=== PATIENT | male | born 1980 | race Caucasian/White ===

== ENCOUNTER 2025-05-23 19:26 | Emergency (ER) | payer OTHER, SELFPAY ==
[2025-05-23] VITALS (22 sets, daily range): BP systolic 104–148; BP diastolic 76–95; PULSE 62–84; RESP 12–32; TEMP 36.5; O2SAT 93–98; BMI 25.4
--- NOTE | 2025-05-23 19:58 | CRLHL7_ITS ---
For Patients: As a result of the Century Cures Act, medical imaging exams and procedure reports are released immediately into your electronic medical record. You may view this report before your referring provider. If you have questions, please contact your health care provider. INDICATION: Acute stroke. Dizziness. TECHNIQUE: CTA head using intravenous contrast with bolus tracking, 3D angiographic rendering using maximum intensity projection (MIP) and images permanently archived. CTA neck using intravenous contrast with bolus tracking, 3D angiographic rendering using maximum intensity projection (MIP) and images permanently archived. FINDINGS: CTA head: There is normal opacification of the intracranial vasculature. There is no large vessel occlusion or significant intracranial stenosis. No aneurysm is identified. CTA neck: There is no significant carotid artery stenosis or dissection. There is no significant vertebral artery stenosis or dissection. IMPRESSION: Unremarkable head CTA. Unremarkable neck CTA. Please note that all CT scans at this facility use dose modulation, iterative reconstruction, and/or weight-based dosing when appropriate to reduce radiation dose to as low as reasonably achievable. Dictated by Isiah Gaines MD @ 05/24/2025 7:17:28 PM (Electronically Signed)
--- NOTE | 2025-05-23 19:58 | CRLHL7_ITS ---
For Patients: As a result of the Century Cures Act, medical imaging exams and procedure reports are released immediately into your electronic medical record. You may view this report before your referring provider. If you have questions, please contact your health care provider. Indication: Dizziness, visual disturbances Technique: Noncontrast CT through the head with multiplanar reformats Comparison: None Findings: Brain: No acute hemorrhage. No acute infarct. No significant mass effect or midline shift. No gross evidence of a mass lesion or cerebral edema. Ventricles: No acute abnormality appreciated. Orbits, sinuses, mastoids: No acute abnormality appreciated. Mild sinus disease. Calvarium and soft tissues: No acute abnormality appreciated. Impression: No acute abnormality appreciated. MRI would be recommended if there is continued clinical concern for significant intracranial pathology. Please note that all CT scans at this facility use dose modulation, iterative reconstruction, and/or weight-based dosing when appropriate to reduce radiation dose to as low as reasonably achievable. Dictated by Joel Aguilar MD @ 05/23/2025 8:20:26 PM (Electronically Signed)
--- NOTE | 2025-05-23 20:10 | ED_ITS ---
HPI - Neuro Symptoms/Deficit General Time Seen by Provider: 20:02 Date Seen: 05/23/25 Chief Complaint: Neuro Symptoms/Altered Deficit Stated Complaint: fuzzy vision, seeing stars Time Seen by Provider: 05/23/25 20:07 Source: patient Mode of arrival: ambulatory Limitations: no limitations History of Present Illness HPI Narrative: Martina is a previously healthy 44 yo male who presents to the emergency department for evaluation vision changes. 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 Patient states that around 1900 he was [place] from [employer] caring 2 5 gal buckets of glycol (weighing approximately 100 lb) patient states that he coughed, suddenly felt dizzy as if he was going to pass out so he sat down. Patient reports that afterwards he had blurry vision with vision flashing in both eyes. Patient reports right eye seems improved however still has ongoing flashing to his left eye. Patient reports some chest tightness and shortness of breath. Denies any headache, eye pain, focal weakness. Patient reports some tingling and numbness. No history of similar symptoms in the past. No other complaints. Related Data Home Medications ?Medication ?Instructions ?Recorded ?Confirmed No Known Home Medications 05/23/25 1208/16 Allergies Allergy/AdvReac Type Severity Reaction Status Date / Time clindamycin Allergy Mild Rash Verified 05/23/25 20:18 Penicillins Allergy Mild Rash Verified 05/23/25 20:18 Review of Systems Narrative: Past medical history, past surgical history, medications, allergies, family history, and social history were reviewed with the patient. No additional pertinent items. A medically appropriate review of systems was performed with pertinent positives and negatives noted in HPI, all other systems negative. Exam Narrative: Exam Narrative: General: Afebrile, no acute distress HEENT: Normocephalic, atraumatic, PERRL, EOMI, conjunctiva normal. MMM Neck: non-tender, supple Cardio: regular rate. regular rhythm Resp: Normal work of breathing, no respiratory distress, lungs clear [place] aterally, no wheezing, rhonchi, rales Chest/Back: no visual signs of trauma, no midline tenderness, no CVA tenderness Abdomen: soft, non distension, no tenderness, no peritoneal signs Neuro: alert and fully oriented. CN II-XII intact. Visual shore intact - reports intermittent flashes in left upper eye/visual field (right sided visual changes/flashes resolved). Patient reports symptoms are present when eyes are open and closed. Normal strength and sensation in all extremities. Normal gait. MSK: no deformities. Normal range of motion Integumentary/Skin: no rash visualized, normal color Psych: normal affect, normal behavior Const: Vital Signs, click to edit/add: Vital Signs - 24 hr 05/23/25 19:36 05/23/25 20:17 05/23/25 20:30 Temperature 97.7 F Pulse Rate 74 75 Pulse Rate [Pulse Oximeter] 84 Respiratory Rate 18 16 19 Blood Pressure Blood Pressure [Ri ght Upper Arm] 148/95 H Pulse Oximetry 98 96 96 Oxygen Delivery Me thod Room Air 05/23/25 20:31 05/23/25 20:45 05/23/25 20:46 Temperature Pulse Rate 74 73 74 Pulse Rate [Pulse Oximeter] Respiratory Rate 13 18 18 Blood Pressure 125/84 111/78 Blood Pressure [Ri ght Upper Arm] Pulse Oximetry 93 94 95 Oxygen Delivery Me thod 05/23/25 21:00 05/23/25 21:01 05/23/25 21:15 Temperature Pulse Rate 68 66 74 Pulse Rate [Pulse Oximeter] Respiratory Rate 18 14 16 Blood Pressure 110/76 Blood Pressure [Ri ght Upper Arm] Pulse Oximetry 94 95 95 Oxygen Delivery Me thod 05/23/25 21:16 05/23/25 21:17 05/23/25 21:30 Temperature Pulse Rate 78 71 70 Pulse Rate [Pulse Oximeter] Respiratory Rate 20 13 13 Blood Pressure 112/78 Blood Pressure [Ri ght Upper Arm] Pulse Oximetry 97 97 96 Oxygen Delivery Me thod 05/23/25 21:31 05/23/25 21:45 05/23/25 21:46 Temperature Pulse Rate 68 70 64 Pulse Rate [Pulse Oximeter] Respiratory Rate 13 32 H 16 Blood Pressure 104/76 124/85 Blood Pressure [Ri ght Upper Arm] Pulse Oximetry 97 98 98 Oxygen Delivery Me thod 05/23/25 22:00 05/23/25 22:05 05/23/25 22:15 Temperature Pulse Rate 74 64 68 Pulse Rate [Pulse Oximeter] Respiratory Rate 15 17 19 Blood Pressure Blood Pressure [Ri ght Upper Arm] Pulse Oximetry 96 96 95 Oxygen Delivery Me thod 05/23/25 22:20 05/23/25 22:30 05/23/25 22:34 Temperature Pulse Rate 69 64 62 Pulse Rate [Pulse Oximeter] Respiratory Rate 16 12 Blood Pressure Blood Pressure [Ri ght Upper Arm] Pulse Oximetry 96 96 96 Oxygen Delivery Me thod 05/23/25 22:45 Temperature Pulse Rate 73 Pulse Rate [Pulse Oximeter] Respiratory Rate 13 Blood Pressure Blood Pressure [Ri ght Upper Arm] Pulse Oximetry 97 Oxygen Delivery Me thod Course Vital Signs Vital signs: Initial Vital Signs Temperature 97.7 F 05/23/25 19:36 Temperature Source Temporal Artery Scan 05/23/25 19:36 Pulse Rate 84 05/23/25 19:36 Pulse Rhythm Regular 05/23/25 19:36 Respiratory Rate 18 05/23/25 19:36 Blood Pressure 148/95 H 05/23/25 19:36 Blood Pressure Mean 112 H 05/23/25 19:36 Blood Pressure Position Sitting 05/23/25 19:36 Pulse Oximetry 98 05/23/25 19:36 Oxygen Delivery Method Room Air 05/23/25 19:36 Vital Signs Temperature 97.7 F 05/23/25 19:36 Pulse Rate 84 05/23/25 19:36 Respiratory Rate 18 05/23/25 19:36 Blood Pressure 148/95 H 05/23/25 19:36 Pulse Oximetry 98 05/23/25 19:36 Oxygen Delivery Method Room Air 05/23/25 19:36 Temperature 97.7 F 05/23/25 19:36 Pulse Rate 73 05/23/25 22:45 Respiratory Rate 13 05/23/25 22:45 Blood Pressure 124/85 05/23/25 21:46 Pulse Oximetry 97 05/23/25 22:45 Oxygen Delivery Method Room Air 05/23/25 19:36 Medications Administered Medications: Discontinued Medications Generic Name Dose Route Start Last Admin Trade Name Freq PRN Reason Stop Dose Admin Sodium Chloride 1,000 mls @ 1,000 mls/hr 05/23/25 21:30 05/23/25 22:39 0.9 % Sodium Chloride 1000 Ml IV 05/23/25 22:29 Infused .Q1H EFRAÍN Infusion Ketorolac Tromethamine 15 mg 05/23/25 21:25 05/23/25 21:35 Ketorolac 15 Mg/Ml Inj IVP 05/23/25 21:26 15 mg ONCE ONE Administration Metoclopramide HCl 10 mg 05/23/25 21:25 05/23/25 21:35 Metoclopramide Hcl 5 Mg/Ml Inj IVP 05/23/25 21:26 10 mg ONCE ONE Administration MDM - Neuro Symptoms/Deficit MDM Narrative Medical decision making narrative: Martina is a previously healthy 44 yo male who presents to the emergency department for evaluation of sudden onset near syncope and vision changes. Upon arrival code stroke was called. Last known well time is 7:00 p.m.. Patient slightly hypertensive upon arrival with blood pressure 148/95, heart rate 84, oxygen 98% on room air. Patient reports right-sided vision changes have resolved, still having left-sided flashes in left upper eye. No other focal neurological deficit. Patient went immediately to CT/CT of the head and neck for stroke like symptoms. Differential diagnosis includes but is not limited to CVA - ischemic versus hemorrhagic versus TIA versus migraine versus dissection versus aneurysm versus dehydration versus metabolic/electrolyte among others. I discussed patient management with Neurology team at [facility] - Dr. Gambino. Dr. Canseco reviewed imaging, at this time not a candidate for is lytics due to improving symptoms and no a focal deficits as well as possible mimic (migraine equivalent). Suspect likely occipital symptoms however do recommend further evaluation and MRI. I reviewed comprehensive labs which are remarkable for wbc 7.63, hemoglobin 14.1, no acute metabolic or electrolyte abnormality. I reviewed EKG which demonstrates normal sinus rhythm with normal axis, ventricular rate of 81 beats per minute, QTC 429, no acute ischemic change. No prior EKG to compare to. I personally reviewed interpreted CT of the head which demonstrates no acute abnormality, no acute infarct, intracranial hemorrhage. I personally reviewed a nd interpreted CTA of the head and neck and reviewed preliminary report which is unremarkable with no acute abnormality. I discussed results with Neurology team Dr. Canseco. I personally reviewed interpreted chest x-ray which is unremarkable with no focal infiltrate, pleural effusion, pneumothorax. On re-evaluation at 2115 patient reports complete resolution of symptoms with improvement/resolution of his visual changes however does report headache. Given patient's symptoms suspect likely migraine equivalent. Patient was treated with 1 L IV fluid bolus, Reglan, Toradol. I did discuss with patient and recommend admission for further evaluation, continues close monitoring, an MRI of the brain in the morning. Patient states that he needs to go back to work and does not want to stay in the hospital. Patient does understand risk and is agreeable to follow up in clinic for further evaluation, outpatient MRI, as well as outpatient ophthalmology evaluation. Patient given clinic numbers to call to schedule appointment. Strict return precautions discussed. Patient understands and agrees the plan. Medical Records Attestation: I reviewed the patient's medical records. Lab Data Attestation: I reviewed the patient's lab results. Labs: Lab Results 05/23/25 05/23/25 Range/Units 20:03 21:06 WBC 7.63 (4.50-11.00) K/uL RBC 4.71 (4.30-5.90) m/uL Hgb 14.1 (13.5-17.5) gm/dL Hct 41.0 (37.0-53.0) % MCV 87 (80-100) fL MCH 30 (26-34) pg MCHC 34 (32-36) gm/dL RDW Coeff of Bianca 11.9 (11.5-15.5) % Plt Count 277 (140-440) K/uL Neut % (Auto) 62.6 (42.0-72.0) % Lymph % (Auto) 24.0 (20-44) % [place] % (Auto) 8.0 (0.0-11.0) % Eos % (Auto) 4.8 (0.0-7.0) % Baso % (Auto) 0.5 (0.0-3.0) % Neut # (Auto) 4.77 (1.7-7.0) K/uL Lymph # (Auto) 1.83 (0.90-2.90) K/uL [place] # (Auto) 0.60 (0.00-0.90) K/UL Eos # (Auto) 0.37 (0.00-0.50) K/uL Baso # (Auto) 0.04 (0.00-0.30) K/uL Abs Immat Gran (auto) 0.01 (0.00-0.30) K/uL Imm/Tot Granulo (auto) 0.1 % VBG pH 7.394 (7.32-7.43) VBG pCO2 47 (40-50) mmHG VBG pO2 43.3 (25-47) mmHG VBG HCO3 29 H (21-28) mmol/L Carboxyhemoglobin 2.1 (0.0-5.0) % Sodium 137 (135-149) mmol/L Potassium 3.6 (3.6-5.1) mmol/L Chloride 98 (96-114) mmol/L Carbon Dioxide 25 (20-32) mmol/L Anion Gap 14 (7-15) mEq/L BUN 10 (5-24) mg/dL Creatinine 1.0 (0.5-1.5) mg/dL Estimated Creat Clear 104.54 Estimated GFR 96 ml/min Glucose 94 (60-115) mg/dL Calcium 9.1 (8.4-10.6) mg/dL Total Bilirubin 0.6 (0.1-1.5) mg/dL AST 25 (12-35) U/L ALT 19 (4-50) U/L Alkaline Phosphatase 120 (40-150) U/L Troponin I Cancelled Total Protein 6.7 (6.0-8.3) g/dL Albumin 4.2 (3.3-5.0) g/dL Imaging Data CT scan - head: Attestation: I have reviewed the pertinent imaging results. Radiologist's impression: [place] [address] Diagnostic Imaging Report Patient: Martina Kang MR#: [id number] : 1980 Acct:[id number] Loc: ED Service Date: 05/23/[address]: Ordering Physician: Betty Whalen M.D. Date of Service: 05/23/25 Procedure(s): CT head/brain [facility] Accession Number(s): [id number] cc: eBtty Whalen M.D.~ For Patients: As a result of the Century Cures Act, medical imaging exams and procedure reports are released immediately into your electronic medical record. You may view this report before your referring provider. If you have questions, please contact your health care provider. Indication: Dizziness, visual disturbances Technique: Noncontrast CT through the head with multiplanar reformats Comparison: None Findings: Brain: No acute hemorrhage. No acute infarct. No significant mass effect or midline shift. No gross evidence of a mass lesion or cerebral edema. Ventricles: No acute abnormality appreciated. Orbits, sinuses, mastoids: No acute abnormality appreciated. Mild sinus disease. Calvarium and soft tissues: No acute abnormality appreciated. Impression: No acute abnormality appreciated. MRI would be recommended if there is continued clinical concern for significant intracranial pathology. Please note that all CT scans at this facility use dose modulation, iterative reconstruction, and/or weight-based dosing when appropriate to reduce radiation dose to as low as reasonably achievable. Dictated by Joel Aguilar MD @ 05/23/2025 8:20:26 PM Critical Care Time Critical Care Time Critical Care Time: Yes Attestation: The patient required my highest level preparedness to intervene emergently and I personally spent this critical care time directly and personally managing the patient. This critical care time included: Obtaining a history; Examining the patient; Pulse oximetry; Ordering and reviewing of studies; Arranging urgent treatment with development of a management plan; Evaluation of patients response to treatment; Frequent reassessment discussions with other providers. This critical care time was performed to assess and manage the high probability of imminent life-threatening deterioration that could result in multiorgan failure. It was exclusive of separate billable procedures and treating other patients and teaching time. Total Critical Care Time in Minutes: 45 Discharge Plan Discharge Clinical Impression: Blurry vision, Vision changes Patient Disposition: Home, Self-Care Condition: Stable Additional Instructions: We recommend staying in the hospital for ongoing evaluation, MRI of your brain. Please follow up with your primary care provider in clinic for further evaluation and follow up and to arrange outpatient testing. Please call [phone] to schedule a clinic appointment/follow up. We also recommend further ophthalmology evaluation with complete eye examination. Please call [phone] to schedule an appointment at [facility]. Please continue your own medications. Please return to the emergency department if any recurrent or worsening symptoms. It was a pleasure taking care of you today. We hope you feel better soon. Prescriptions: No Action No Known Home Medications Follow Up/Referrals: Provider,Not a Local [Primary Care Provider, Family Practice] Stand Alone Forms: [employer] Info Instructions Procedures ABG Interpretation ABG Results: 05/23/25 21:06 VBG pH 7.394 VBG pCO2 47 VBG pO2 43.3 VBG HCO3 29 H
--- NOTE | 2025-05-23 20:15 | XR_ITS ---
Patient: TIMI LODI Facility:?[facility] Patient ID:?[id number] Site Patient ID:?[id number]. Site :?1980 Study:?XRay-Chest 2V-05/23/2025 8:29:14 PM Ordering Physician:Keyon Page Final Report: Indication: Chest pain. Technique: Chest 1 view. Comparison: None. Findings/Impression: Cardiovascular and mediastinum: Heart size is normal. Unremarkable mediastinum. Lungs and pleural space: Lungs are clear. No sign of infiltrate or mass. No sign of pleural effusion. No pneumothorax. Bones and soft tissues: No acute findings. Dictated by Mars Nayak MD @ 05/23/2025 8:34:29 PM (Electronic Signature)
[2025-05-23 20:30] LABS: Hematocrit* 41.0 % (37.0-53.0); Hemoglobin* 14.1 gm/dL (13.5-17.5); Immature Granulocytes Abs Auto 0.01 K/uL (0.00-0.30); Immature Granulocytes Pct Auto 0.1 %; Lymphocytes Absolute Auto 1.83 K/uL (0.90-2.90); Mean Corpuscular HGB Conc 34 gm/dL (32-36); Mean Corpuscular Hemoglobin 30 pg (26-34); Mean Corpuscular Volume 87 fL (80-100); RDW Coefficient of Variation % 11.9 % (11.5-15.5); Red Blood Count* 4.71 m/uL (4.30-5.90); White Blood Count* 7.63 K/uL (4.50-11.00)
[2025-05-23 20:42] LABS: Slide Review Reflex No
[2025-05-23 20:45] LABS: Chloride* 98 mmol/L (96-114)
[2025-05-23 20:46] LABS: Albumin* 4.2 g/dL (3.3-5.0); Potassium* 3.6 mmol/L (3.6-5.1); Sodium* 137 mmol/L (135-149)
[2025-05-23 20:48] LABS: Blood Urea Nitrogen* 10 mg/dL (5-24); Creatinine* 1.0 mg/dL (0.5-1.5); Est. Creatinine Clearance* 104.54; Estimated Glomerular Filt Rate 96 ml/min
[2025-05-23 20:49] LABS: Alanine Aminotransferase* 19 U/L (4-50); Alkaline Phosphatase* 120 U/L (40-150); Anion Gap 14 mEq/L (7-15); Aspartate Amino Transferase* 25 U/L (12-35); Bilirubin Total* 0.6 mg/dL (0.1-1.5); Calcium* 9.1 mg/dL (8.4-10.6); Carbon Dioxide* 25 mmol/L (20-32); Glucose* 94 mg/dL (60-115); Total Protein* 6.7 g/dL (6.0-8.3)
[2025-05-23 21:12] LABS: Carboxyhemoglobin* 2.1 % (0.0-5.0); HCO3 VBG 29 mmol/L (21-28); PCO2 VBG 47 mmHG (40-50); PO2 VBG 43.3 mmHG (25-47); pH VBG 7.394 (7.32-7.43)
--- OUTSIDE RECORDS SUMMARY | 2025-05-23 21:34 | XMS_ITS | Clinical Summary ---
Author Organization [place] Address [address] [place] [address]. [place] [address] Care Team Providers Care Vice President Of Consulting Services Name Role Phone System, Provider Not In Primary Care Provider Un available Allergies Active Allergy Reactions Criticality Noted Date Comments Amoxicillin Unknown 05/31/2013 Medications No known medications Active Problems Problem Noted Date Diagnosed Date Herpes Zoster (Shingles) Overview (12/21/2020): Created by Conversion Replacement Utility updated for latest IMO load Social History Tobacco Use Types Packs/Day Years Used Date Smoking Tobacco: Never Assessed Adolescent Education Answer Date Record ed Getting School Help Needed Not on file 10/27 Sex and Gender Information Value Date Recorded Sex Assigned at Not on file Legal Sex Male 9:52 AM CDT Gender Identity Not on file Sexual Orientation Not on file Last Filed Vital Signs Vital Sign Reading Time Taken Comments Blood Pressure 119/80 10/27/2023 11:13 PM CDT Pulse 85 10/27/2023 11:13 PM CDT Temperature 36.7 C (98 F) 10/27/2023 11:13 PM CDT Respiratory Rate 18 10/27/2023 11:13 PM CDT Oxygen Saturation 99% 10/27/2023 11:13 PM CDT Inhaled Oxygen Concentration - - Weight 81.6 kg (180 lb) 10/27/2023 11:13 PM CDT Height 180.3 cm (5' 11) 10/27/2023 11:13 PM CDT Body Mass Index 25.1 10/27/2023 11:13 PM CDT Plan of Treatment Health Maintenance Due Date Last Done Comments ADVANCE CARE PLANNING 1980 ANNUAL REVIEW OF HM ORDERS 1980 DIABETES SCREENING 1980 YEARLY PREVENTIVE VISIT 1984 HEPATITIS B VACCINE (1 of 3 - 19+ 3-dose series) 2000 LIPID 2021 PHQ-2 (once per calendar year) 2024 COVID-19 VACCINE (1 - 2024-2 6 season) 2025 INFLUENZA VACCINE (#1) 2025 DTAP/TDAP/TD VACCINE (3 - Td or Tdap) 04/24/2030 04/24/2020, 11/21/2008 ZOSTER VACCINE (1 of 2) 2031 HEPATITIS C SCREENING Completed 09/18/2008 HIV SCREENING Completed 04/24/2020, 09/18/2008 HPV VACCINE (No Doses Required) Completed MENINGITIS VACCINE Aged Out No longer eligible based on patient's age to complete this topic PNEUMOCOCCAL VACCINE: PEDIATRICS (0 to 5 YEARS) AND AT-RISK PATIENTS (6 to 49 YEARS) Aged Out No longer eligible b ased on patient's age to complete this topic Care Teams Vice President Of Consulting Services Relationship Specialty Start Date End Date System, Provider Not In PCP - General Clinic 10/27/23
--- OUTSIDE RECORDS SUMMARY | 2025-05-23 21:34 | XMS_ITS | Clinical Summary ---
Author Organization [facility] Address [address] [place] [id number] Care Team Providers Care News Copy Editor Name Role Phone Chencho Layne MD Primary Care Provider Unavailable Allergies Active Allergy Reactions Criticality Noted Date Comments Amoxicillin *Unknown - Pt Doesn't Remember 06/24 Azithromycin Rash 05/28/2024 Medications HYDROCORTISONE 1 % OINTMENT apply to affected area(s) by topical route 2 times per day 1 0 02/08/2009 Active Active Problems Problem Noted Date Diagnosed Date Tobacco use disorder 09/13/2008 Genital warts 08/09/2008 Lipoma of other skin and subcutaneous tissue Encounters Date Type Department Care Team Description 05/23/2025 Office Visit [facility] [address] [place] [id number] Destiney Gambino MD Telehealth ([facility] - telephone consult only - no video) from Last 3 Months Immunizations Immunization Administration Dates Next Due Tdap 04/24/2020,11/21/2008 Family History Medical History Relation Name Comments Diabetes Brother Gout Father Multiple sclerosis Mother hx lymes Good Health Sister Relation Name Status Comments Brother Alive Father Alive Maternal Grandfather Maternal Grandmother Mother Alive Paternal Grandfather Paternal Grandmother Sister Alive Social History Tobacco Use Types Packs/Day Years Used Date Smoking Tobacco: Never Smokeless Tobacco: Never Tobacco Cessation:Counseling Given: Not Answered Alcohol Use Standard Drinks/Week Comments No 0 (1 standard drink = 0.6 oz pur e alcohol) PHQ-2 Answer Date Recorded PHQ-2 TOTAL SCORE 1 06/03/2024 Interpersonal Safety Answer Date Record ed Are you being hit, kicked, p ushed or yelled at (see row info)? 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 file Not on file Not on file Obstetrics History Last Filed Vital Signs Vital Sign Reading Time Taken Comments Blood Pressure 110/76 06/03/2024 2:10 PM ASSOCIATE CURATOR Pulse 60 06/03/2024 2:10 PM ASSOCIATE CURATOR Temperature 36.4 C (97.5 F) 06/03/2024 2:10 PM ASSOCIATE CURATOR Respiratory Rate 22 05/30/2024 12:30 AM ASSOCIATE CURATOR Oxygen Saturation 98% 05/30/2024 12:39 AM ASSOCIATE CURATOR Inhaled Oxygen Concentration - - Weight 89.6 kg (197 lb 9.6 oz) 06/03/2024 2:10 P M ASSOCIATE CURATOR Height 182 cm (5' 11.65) 06/03/2024 2:10 PM ASSOCIATE CURATOR Body Mass Index 27.06 06/03/2024 2:10 PM ASSOCIATE CURATOR Plan of Treatment Health Maintenance Due Date Last Done Comments Hepatitis B series for 19+ ( 1 of 3 - 19+ 3-dose series) 2000 HPV series for age 9-45 (1 - 3-dose SCDM series) 2008 COVID-19 vaccine series ( season) 2025 Influenza Vaccine (#1) 2025 BMI (ht and wt on same day) for age 18+ 06/03/2025 06/03/2024 Depression screening for age 12+ 06/03/2025 06/03/2024 Lipids for age 35-44 05/30/2029 05/30/2024 Tetanus booster 04/24/2030 04/24/2020, 11/21/2008 RSV vaccine for adults or (1 - 1-dose 75+ series) 2056 HIV for age 15-65 Completed 09/18/2008 Hepatitis C screening for ag e 18-79 Completed 09/18/2008 Pneumococcal series for age 6-49 Aged Out No longer eligible b ased on patient's age to complete this topic Procedures Procedure Name Priority Date/Time Associated Diagnosis Comments LIPID PANEL W REFLEX MEASURED LDL Today 05/30/2024 1:49 AM ASSOCIATE CURATOR Fatigue, unspecified type ANTI HIV 1/2 Routine 09/18/2008 3:44 PM CDT STD (Sexually Transmitted Disease) ANTI HCV Routine 09/18/2008 3:44 PM CDT STD (Sexually Transmitted Disease) from Last 3 Months or Most Recently Relevant to Health Maintenance Results * (ABNORMAL) LIPID PANEL W REFLEX MEASURED LDL (05/30/2024 1:49 AM ASSOCIATE CURATOR) CHOLESTEROL,TOTAL 187 100 - 199 mg/dL 06/03/2024 3:07 PM [facility] Comment: Cholesterol, Total Reference Ranges Desirable <200 mg/dL Borderline 200-239 mg/dL High >=240 mg/dL TRIGLYCERIDES 344(H) <150 mg/dL 06/03/2024 3:07 PM [facility] HDL CHOLESTEROL 38(L) >40 mg/dL 3:07 PM [facility] NON-HDL CHOLESTEROL 149(H) <145 mg/dl 06/03/2024 3:07 PM [facility] CHOL/HDL RATIO 4.92(H) <4.50 06/03/2024 3:07 PM [facility] LDL CHOLESTEROL 80 <=130 mg/dL 06/03/2024 3:07 PM [facility] VLDL CHOLESTEROL 69(H) <=30 mg/dL 06/03/2024 3:07 PM [facility] PROVIDER ORDERED STATUS RANDOM 06/03/2024 3:07 PM [facility] Blood BLOOD SPECIMEN / Unknown Non-Lab Butterfly / Unknown 05/30/2024 1:49 AM ASSOCIATE CURATOR 05/30/2024 1:51 AM ASSOCIATE CURATOR us Evy Shah NP CHEMISTRY Final Resul t [facility] [place]NAL ZIP [phone] [place] [address] * ANTI HCV (09/18/2008 3:44 PM CDT) ANTI HCV Non-reacti ve [facility] Blood specimen (specimen) BLOOD SPECIMEN / Unknown 09/18/2008 3:44 PM CDT 09/18/2008 2:56 PM CDT us Shira Hernandez MD SEND OUTS Final Re sult [facility] INTERNAL ZIP [address] [address] * ANTI HIV 1/2 (09/18/2008 3:44 PM CDT) [facility]TI [facility] specimen (specimen) BLOOD SPECIMEN / Unknown 09/18/2008 3:44 PM CDT 09/18/2008 2:56 PM CDT us Shira Hernandez MD SEND OUTS Final Re sult [facility] INTERNAL ZIP [address] [place] [id number] from Last 3 Months or Most Recently Relevant to Health Maintenance Care Teams News Copy Editor Relationship Specialty Start Date End Date Chencho Layne MD [address] [place] [id number] PCP - General 07/12/08
--- OUTSIDE RECORDS SUMMARY | 2025-05-23 21:34 | XMS_ITS | Clinical Summary ---
Author Organization [facility] Address [address] [place] [address] Care Team Providers Care Pbx Manager Name Role Phone No Primary/Referring, Phy Primary Care Provider Unavailable Source Comments You are receiving this document as you are listed as the primary care provider,follow-up provider, or the patient has been referred to you for consultation.This is in compliance with the Medicare and[facility] EHR Incentive Program,which states Providers who transition their patient to another setting of careor provider of care or refers their patient to another provider of care shouldprovide summary care record for each transition of care or referral. [facility] Allergies Active Allergy Reactions Criticality Noted Date Comments Amoxicillin Other, see comments Medium 04/24/2020 Ate our stomach lining when he was a baby. Medications No known medications Active Problems No known active problems Immunizations Immunization Administration Dates Next Due Tdap 04/24/2020,11/21/2008 Social History Tobacco Use Types Packs/Day Years Used Date Smoking Tobacco: Never Alcohol Use Standard Drinks/Week Comments Not Currently 0 (1 standard drink = 0.6 oz pur e alcohol) PHQ-2 Answer Date Recorded PHQ-2 Score 0 04/24/2020 Sex and Gender Information Value Date Recorded Sex Assigned at Not on file Legal Sex Male 2:46 AM CDT Gender Identity Not on file Sexual Orientation Not on file Last Filed Vital Signs Vital Sign Reading Time Taken Comments Blood Pressure 102/75 01/17/2022 4:44 PM CDT Pulse 73 01/17/2022 4:44 PM CDT Temperature 36.5 C (97.7 F) 01/17/2022 3:34 PM CDT Respiratory Rate 14 01/17/2022 4:44 PM CDT Oxygen Saturation 97% 01/17/2022 4:44 PM CDT Inhaled Oxygen Concentration - - Weight 81.2 kg (179 lb) 04/24/2020 2:00 PM PRIMARY CARE MD Height - - Body Mass Index - - Plan of Treatment Health Maintenance Due Date Last Done Comments Hep C Screening (Preventive Services) 1981 Adult Preventive Visit 1999 HepB Vaccine (1) 2000 HPV Vaccine (1 - 3-dose SCDM series) 2008 COVID-19 Vaccine (1 - 2024-2 6 season) 2025 Influenza Vaccine (#1) 2025 Cholesterol 04/24/2025 04/24/2020 DTaP/Tdap/Td Vaccine (3 - Tdap) 04/24/2030 04/24/2020, 11/21/2008 Zoster/Shingles Vaccine (1 o f 2) 2031 HIV Screening (Preventive Services) Completed 04/24/2020 HepA Vaccine Aged Out No longer eligi ble based on patient's age to complete this topic Hib Vaccine Aged Out No longer eligi ble based on patient's age to complete this topic IPV (Polio) Vaccine Aged Out No longe r eligible based on patient's age to complete this topic MCV4 Vaccine Aged Out No longer eligi ble based on patient's age to complete this topic Meningococcal B Vaccine Aged Out No l onger eligible based on patient's age to complete this topic Pneumococcal Vaccine Aged Out No long er eligible based on patient's age to complete this topic Procedures Procedure Name Priority Date/Time Associated Diagnosis Comments HIV 1/2 AG/AB 4TH GEN Routine 04/24/2020 2:49 PM PRIMARY CARE MD Screening for HIV (human immunodeficiency virus) LIPID PANEL & DIRECT LDL (IF NEEDED) Routine 04/24/2020 2:49 PM PRIMARY CARE MD Screening for hyperlipidemia from Last 3 Months or Most Recently Relevant to Health Maintenance Results * HIV 1/2 Ag/Ab 4th Generation (04/24/2020 2:49 PM PRIMARY CARE MD) HIV 1/2 Antigen/Antib amie (4th generation) Negative (Non Reactive) Negative (Non Reactive) 04/24/2020 6:45 PM PRIMARY CARE MD [facility] Comment:HIV-1 p24 Antigen an d HIV-1/HIV-2 Antibody not detected Blood Venipuncture / Unknown 04/24/2020 2:49 PM PRIMARY CARE MD 04/24/2020 2:50 PM PRIMARY CARE MD us Sivakumar Kong MD LAB_1 Final Result [facility] [address] [place], [place] [address] * Lipid Panel and Direct LDL(If Needed) (04/24/2020 2:49 PM PRIMARY CARE MD) [facility] Cholesterol 184 0 - 199 mg/dL 04/24/2020 3:10 PM PRIMARY CARE MD [facility] Triglyceride 130 <=149 mg/dL 04/24/2020 3:10 PM PRIMARY CARE MD [facility] HDL Cholesterol 49 >=40 mg/dL 0 3:10 PM [facility] LDL, Calculated 109 <130 mg/dL 0 3:10 PM [facility] Non HDL Chol, Calculated 135 mg/dL 04/24/2020 3:10 PM [facility] Cholesterol/HDL Ratio 3.8 04/24/2020 3:10 PM [facility] Hours Fasting 15 04/24/2020 3:10 PM [facility] Blood Venipuncture / Unknown 04/24/2020 2:49 PM PRIMARY CARE MD 04/24/2020 2:50 PM PRIMARY CARE MD us Sivakumar Kong MD LAB_1 Final Result [facility] CLIA: [id number] [address] [place] [address] from Last 3 Months or Most Recently Relevant to Health Maintenance Care Teams Pbx Manager Relationship Specialty Start Date End Date No Primary/Referring, Phy PCP - General 01/17/22
[2025-05-23] MEDS: METOCLOPRAMIDE HCL 5 MG/ML INJ 10 MG IVP (21:35)
--- OUTSIDE RECORDS SUMMARY | 2025-05-23 21:35 | XMS_ITS | Clinical Summary ---
Author Organization [facility] Address [address] [place] [address] Care Team Providers Care Belt And Link Shop Supervisor Name Role Phone Doctor, No Primary Care Provider Unavailabl e Allergies Active Allergy Reactions Criticality Noted Date Comments Amoxicillin Other 07/01/2022 As a child. Eating my stomach lining Azithromycin Rash 05/28/2024 Medications ibuprofen (ADVIL) 800 mg oral tablet TAKE 1 TABLET BY MOUTH EVERY EIGHT HOURS NEEDED FOR PAIN 05/24/2024 Active chlorhexidine gluconate 0.12% (PERIDEX) 0.12 % MM solution SWISH AND SPIT WITH 1/2 OZ BY MOUTH TWICE DAILY 05/24/2024 Active Social History Tobacco Use Types Packs/Day Years Used Date Smoking Tobacco: Unknown Passive Smoke Exposure: Never Tobacco Cessation:Counseling Given: No Alcohol Use Standard Drinks/Week Comments Not Currently 0 (1 standard drink = 0.6 oz pur e alcohol) Humiliation, Afraid, Rape, and Kick questionnair e Answer Date Recorded Within the last year, have y ou been afraid of your partner or ex-partner? No 05/28/2024 Within the last year, have y ou been humiliated or emotionally abused in other ways by your partner or ex-partner? No Within the last year, have y ou been kicked, hit, slapped, or otherwise physically hurt by your partner or ex-partner? No 05/28/2024 Within the last year, have y ou been raped or forced to have any kind of sexual activity by your partner or ex-partner? No 05/28/2024 PHQ-2 Answer Date Recorded PHQ2 Total 0 05/28/2024 Sex and Gender Information Value Date Recorded Sex Assigned at Not on file Legal Sex Male 3:19 PM VERSE WRITER Gender Identity Not on file Sexual Orientation Not on file Last Filed Vital Signs Vital Sign Reading Time Taken Comments Blood Pressure 116/75 05/28/2024 9:00 PM VERSE WRITER Pulse 61 05/28/2024 9:00 PM VERSE WRITER Temperature 36.6 C (97.9 F) 05/28/2024 6:04 PM VERSE WRITER Respiratory Rate 18 05/28/2024 6:04 PM VERSE WRITER Oxygen Saturation 98% 05/28/2024 9:00 PM VERSE WRITER Inhaled Oxygen Concentration - - Weight 87.5 kg (193 lb) 05/28/2024 4:37 PM VERSE WRITER Height 180.3 cm (5' 11) 05/28/2024 6:04 PM VERSE WRITER Body Mass Index 26.92 05/28/2024 4:37 PM VERSE WRITER Plan of Treatment Health Maintenance Due Date Last Done Comments Lipid Screening 1981 HPV Vaccine (1 - 3-dose SCDM series) 2008 COVID-19 Vaccine (2024-2 6 season) 2025 Influenza Vaccine (#1) 2025 Anxiety Screening (ROGELIO-2) 05/28/2025 05/28/2024 Depression Assessment (PHQ-2) 05/28/2025 05/28/2024 Diabetes Screening 05/28/2027 05/28/2024, 10/04/2023 Adult Tetanus Booster 04/24/2030 04/24/2020 , 11/21/2008 RSV Vaccines (1 - 1-dose 75+ series) 2056 Hepatitis C Screening Completed 09/18/2008 Meningococcal B Vaccine Aged Out No l onger eligible based on patient's age to complete this topic Pneumococcal Vaccine Aged Out No long er eligible based on patient's age to complete this topic Procedures Procedure Name Priority Date/Time Associated Diagnosis Comments BASIC METAB PROFILE STAT 05/28/2024 6 :14 PM VERSE WRITER from Last 3 Months or Most Recently Relevant to Health Maintenance Results * Basic Metab Profile (05/28/2024 6:14 PM VERSE WRITER) Sodium 139 136 - 145 mmol/L 05/28/2024 6:39 PM VERSE WRITER [facility] Potassium 4.6 3.5 - 5.1 mmol/L 05/28/2024 6:39 PM [facility] Chloride 104 98 - 107 mmol/L 05/28/2024 6:39 PM [facility] Carbon Dioxide 28 21 - 32 mmol/L 05/28/2024 6:39 PM [facility] BUN (Urea Nitro) 12 7 - 18 mg/dL 05/28/2024 6:39 PM [facility] Creatinine 1.09 0.70 - 1.30 mg/dL 05/28/2024 6:39 PM [facility] Est GFR (CKD-EPI) >60.00 >60.00 mL/min/1. 73m2 05/28/2024 6:39 PM [facility] Comment:Calculation based on the Chronic Kidney Disease Epidemiology Collaboration (CKD-EPI) equation refit without adjustment for race. Glucose 94 70 - 110 mg/dL 05/28/2024 6:39 PM [facility] Calcium, Serum 9.3 8.5 - 10.1 mg/dL 05/28/2024 6:39 PM [facility] Anion Gap 7.0 0.0 - 15.0 mmol/L 05/28/2024 6:39 PM [facility] Blood 05/28/2024 6:14 PM VERSE WRITER 05/28/2024 6:18 PM VERSE WRITER us Chase Masters MD CHEMISTRY ORDERABLE Final Resul t [facility] [address] [place] [address] from Last 3 Months or Most Recently Relevant to Health Maintenance Care Teams Belt And Link Shop Supervisor Relationship Specialty Start Date End Date Doctor, No No ad PCP - General Radiology 05/28/24
== END 2025-05-23 23:00 | disposition home or self-care (01) ==
PROVIDERS: Family Medicine; Emergency Provider Emergency Medicine
DX: H53.8 Other visual disturbances (principal)
CPT/HCPCS: 36415; 70450; 70496; 70498; 71046; 80053; 82375; 82803; 84484; 85025; 93005; 96374; 96375; 99285; 99291; J1885; J2765; J7030; Q9967